=== PATIENT | female | born 1945 | race Caucasian/White ===

== ENCOUNTER 2016-07-28 21:32 | Emergency (ER) | payer OTHER | END 2016-07-29 00:20 | disposition short-term general hospital (02) | LOC: ER 21:32 | DX: J44.9 Chronic obstructive pulmonary disease, unspecified (principal); J45.909 Unspecified asthma, uncomplicated; Z87.891 Personal history of nicotine dependence; Z88.0 Allergy status to penicillin | CPT/HCPCS: 36415; 96365; 96368; 96375; J1644 ==